=== PATIENT | female | born 1945 | race Two or more races ===

== ENCOUNTER 2023-05-02 06:03 | Day surgery (SDC) | payer OTHER ==
[~2023-05-02 06:03] MED LIST: NORVASC2.5 M1 PO
== END 2023-05-02 14:25 | disposition home or self-care (01) ==
LOC: CIR.AMB 06:03
PROVIDERS: ATTEND Surgery
DX: C50.212 Malignant neoplasm of upper-inner quadrant of left female breast (principal); R59.0 Localized enlarged lymph nodes; I10 Essential (primary) hypertension; Z20.822 Contact with and (suspected) exposure to COVID-19
CPT/HCPCS: 19301; 38525; 19281; A9541; L8699